=== PATIENT | female | born 1985 | race African-American/Black ===

== ENCOUNTER 2018-04-02 17:34 | Emergency (ER) | payer BC ==
[~2018-04-02] VITALS: Ht 170.2 cm; Wt 99.8 kg
[~2018-04-02 17:34] MED LIST: AMOXICILLIN 50500 MG PO; CORTISPORIN OTI10 M2 OTIC; FLEXERIL PO; HYDROCODON-ACE1 EAC7 PO; IBUPROFEN 800800 M1 PO; KEFLEX500 MG PO; LEVAQUIN 500 M500 MG PO; NEXPLANON68 MG SQ; NEXPLANON68 MG SUBQ; NORCO 5-325 TA1 EACH PO; ROBAXIN500 MG PO; TRAMADOL 50 MG50 MG PO; TRINATE TABLET1 TAB; TYLENOL325 MG PO; ZOFRAN4 MG PO
[2018-04-02 17:39] VITALS: BP 118/75
[2018-04-02] MEDS ORDERED: MEDROLDOSEPACK PO (17:46)
[2018-04-02] MEDS ORDERED: AFRIN15 ML NS (17:46)
[2018-04-02] MEDS ORDERED: AUGMENTIN 875-1 EACH PO (17:46)
[2018-04-02] MEDS ORDERED: CLARITIN10 MG PO (17:47)
== END 2018-04-02 17:56 | disposition home or self-care (01) ==
LOC: M.ERS 17:34
DX: J01.00 Acute maxillary sinusitis, unspecified (principal); J45.909 Unspecified asthma, uncomplicated; Z88.1 Allergy status to other antibiotic agents; Z88.6 Allergy status to analgesic agent

== ENCOUNTER 2018-12-29 | Emergency (ER) | payer BC ==
[~2018-12-29] VITALS: Ht 170.2 cm; Wt 108.0 kg
[~2018-12-29] MED LIST changes: +AFRIN15 ML NS; +AUGMENTIN 875-1 EACH PO; +CLARITIN10 MG PO; +MEDROLDOSEPACK PO
[2018-12-29 00:08] VITALS: BP 143/71
[2018-12-29] MEDS ORDERED: MACROBID 100 M100 M1 PO (00:18)
[2018-12-29 00:31] LABS: URINE BILIRUBIN NEGATIVE (Negative); URINE BLOOD 3+ (Negative); URINE CLARITY SL CLOUDY; URINE COLOR DARK YELLOW; URINE GLUCOSE-RANDOM NEGATIVE (Negative); URINE KETONES NEGATIVE (Negative); URINE LEUKOCYTES-REFLEX TRACE (Negative); URINE PROTEIN NEGATIVE (Negative); URINE SPECIFIC GRAVITY >= 1.030 (1.005-1.030); URINE UROBILINOGEN 0.2 E.U./dl (0.2-1.0)
[2018-12-29 00:32] LABS: URINE NITRITE-REFLEX POSITIVE (Negative)
[2018-12-29 00:35] LABS: BACTERIA-REFLEX >30 Many /HPF (None Seen); CASTS None Seen /LPF (None Seen); CRYSTALS None Seen /LPF (None Seen); MUCUS >6 Heavy strn/LPF (None Seen); SQUAMOUS 0-3 Few /LPF (0-3); URINE RBC 3-10 Few /HPF (0-2); URINE WBC-REFLEX 6-15 Few /HPF (0-5)
== END 2018-12-29 00:51 | disposition home or self-care (01) ==
LOC: M.ERS
PROVIDERS: Personal Emergency Response Attendant
DX: N39.0 Urinary tract infection, site not specified (principal); J45.909 Unspecified asthma, uncomplicated; Z88.6 Allergy status to analgesic agent; Z88.2 Allergy status to sulfonamides; Z88.8 Allergy status to other drugs, medicaments and biological substances; Z98.890 Other specified postprocedural states